=== PATIENT | female | born 1965 ===

== ENCOUNTER 2017-02-28 16:34 | Emergency (ER) | payer OTHER ==
[2017-02-28 16:43] VITALS: RESP 18
[2017-02-28] MEDS ORDERED: Lidocaine 2% Inj (20ml) ONE (16:55)
[2017-02-28] MEDS ORDERED: Amoxicillin-Clav 875-125 mg Tab PO STA (17:47)
--- NOTE | 2017-02-28 17:51 | C.PDOC ---
History Of Present Illness 51 y/o F p/w R hand 3rd digit laceration suffered just prior to arrival when caught in door. Patient denies numbness or inability to move fingers. Time Seen by Provider: 02/28/17 16:51 Chief Complaint (Nursing): Abnormal Skin Integrity Past Medical History Vital Signs: Last Vital Signs Temp 98.8 F 02/28/17 16:39 Pulse 81 02/28/17 16:39 Resp 18 02/28/17 16:39 BP 173/106 H 02/28/17 16:39 Pulse Ox 100 02/28/17 16:39 Family History: States: No Known Family Hx - Social History Hx Alcohol Use: No Hx Substance Use: No Review Of Systems Except As Marked, All Systems Reviewed And Found Negative. Constitutional: Negative for: Fever Respiratory: Negative for: Shortness of Breath Physical Exam - Physical Exam Additional Physical Exam Comments: Gen: NAD Extremities: Distal 3rd phalanx of R hand with laceration over dorsal surface extending to lateral finger. Palmar aspect of digit with intact skin. Active bleeding. Nail intact. Patient with IP movement intact. Sensation to distal phalanx intact. Cap refill < 2 seconds. ED Course And Treatment O2 Sat by Pulse Oximetry: 100 Laceration - Laceration Repair No standard instances Wound Length (In cm): 2.5 circumferential around digit Description Of Wound: Linear Wound Cleansed With: Betadine, Sterile Saline Anesthesia: Lidocaine 2% Wound Examination: Irrigated With Saline, No FB With Wound Exploration, No Tendon Injury With Wound Exploration Wound Debridement/Revision: Wound Margins Revised Wound Closure: Suture (6 6-0 ethilon for lateral margins, 1 5-0 chromic gut absorbable in nail bed after nail cut back, nail bed left intact) Suture Technique And Material Used: Interrupted Wound Complexity: Complex (dressed with bacitracin, gauze, and finger splint) Medical Decision Making Medical Decision Making: Tdap administered. Augmentin administered. F/u Hand. Have sutures removed in 10 days. Return to ED immediately for pus discharge, erythema, swelling, or fever. Disposition - Disposition Referrals: Shahab High MD [Staff Provider] - Disposition: HOME/ ROUTINE Disposition Time: 17:48 Condition: STABLE Prescriptions: Amoxicillin/Clavulanate [Augmentin 875 MG-125 MG] 1 tab PO BID #20 tab Instructions: Finger Laceration (ED) - Clinical Impression Clinical Impression: Laceration of finger nail bed
[2017-02-28] MEDS ORDERED: Bacitracin 500 Units/gm Oint Foilpak UD ONE (17:59)
[2017-02-28] MEDS ORDERED: Amoxicillin-Clav 875-125 mg Tab PO ONE (18:07)
[2017-02-28 18:33] VITALS: BP 156/98; PULSE 84; TEMP 97.3; O2SAT 99
== END 2017-02-28 18:21 | disposition home or self-care (01) ==
LOC: C.ER 16:34
DX: S61.212A Laceration without foreign body of right middle finger without damage to nail, initial encounter (principal); W23.0XXA Caught, crushed, jammed, or pinched between moving objects, initial encounter; Y93.89 Activity, other specified; Y92.89 Other specified places as the place of occurrence of the external cause; Z23 Encounter for immunization

== ENCOUNTER 2017-09-11 11:25 | Emergency (ER) | payer OTHER ==
[2017-09-11] MEDS ORDERED: Naproxen 550 mg Tab PO STA (12:14)
[2017-09-11] MEDS ORDERED: Naproxen 550 mg Tab PO ONE (12:20)
--- NOTE | 2017-09-11 13:20 | C.PDOC ---
History Of Present Illness 52 y/o female presents to the ER complaining of mid back pain which has been present for the past 4 days. Patient states she has had this pain previously, and it typiccally resolved with ibuprofen but did not this time. Patient denies fall/injuries, fever, cough, SOB, chest pain, palpitations, and abdominal pain. Time Seen by Provider: 09/11/17 11:42 Chief Complaint (Nursing): Back Pain History Per: Patient History/Exam Limitations: no limitations Onset/Duration Of Symptoms: Days Current Symptoms Are (Timing): Still Present Quality Of Discomfort: "Pain" Severity: Moderate Past Medical History Reviewed: Historical Data, Nursing Documentation, Vital Signs Vital Signs: Last Vital Signs Temp 97.9 F 09/11/17 13:29 Pulse 74 09/11/17 13:29 Resp 18 09/11/17 13:29 BP 161/90 H 09/11/17 13:29 Pulse Ox 98 09/11/17 20:32 - Medical History PMH: No Chronic Diseases Surgical History: No Surg Hx Family History: States: No Known Family Hx - Social History Hx Alcohol Use: No Hx Substance Use: No Review Of Systems Constitutional: Negative for: Fever, Chills Cardiovascular: Negative for: Chest Pain, Palpitations Respiratory: Negative for: Cough, Shortness of Breath Gastrointestinal: Negative for: Nausea, Vomiting, Abdominal Pain Musculoskeletal: Positive for: Back Pain Skin: Negative for: Rash Physical Exam - Physical Exam Appears: Well, Non-toxic, In Acute Distress (in mild pain) Skin: Normal Color, Warm, No Rash Head: Normacephalic Eye(s): bilateral: Normal Inspection Nose: Normal Oral Mucosa: Moist Neck: Supple Cardiovascular: Rhythm Regular Respiratory: Normal Breath Sounds, No Rales, No Rhonchi, No Wheezing Gastrointestinal/Abdominal: Normal Exam, Bowel Sounds, Soft, No Tenderness Back: No CVA Tenderness, Vertebral Tenderness (tenderness at approx T8 level), No Paraspinal Tenderness Neurological/Psych: Oriented x3 ED Course And Treatment O2 Sat by Pulse Oximetry: 98 (RA) Pulse Ox Interpretation: Normal - Radiology CXR: Interpreted by Me, Viewed By Me CXR Interpretation: Yes: No Acute Disease. No: Infiltrates Progress Note: Patient given Naproxen PO and Flexeril PO. CXR ordered and reviewed - negative for acute findings. Reevaluation Time: 13:20 Reassessment Condition: Improved (On reassessment, patient is resting comfortably, in no pain/distress. She states her pain has improved. Rxs for Naprosyn and Flexeril given, and patient instructed to follow up with PMD/ clinic in 1-2 days. She understands she should return to ED if symptoms worsen. ) Disposition Counseled Patient/Family Regarding: Studies Performed, Diagnosis, Need For Followup, Rx Given - Disposition Referrals: Emiliano Gordon MD [Staff Provider] - Disposition: HOME/ ROUTINE Disposition Time: 13:20 Condition: STABLE Additional Instructions: FOLLOW UP WITH YOUR DOCTOR/CLINIC IN 1-2 DAYS USE MEDICATIONS NEEDED RETURN TO ER IF SYMPTOMS WORSEN SEGUIMIENTO CON SCHROEDER MDICO / CLNICA EN 1-2 [place] USE MEDICAMENTOS SEGN SEA NECESARIO VOLVER A ER SI LOS SNTOMAS EMPEORAN Prescriptions: Cyclobenzaprine [Flexeril] 10 mg PO BID PRN #15 tab PRN Reason: Muscle Spasm Naproxen 375 mg PO BID PRN #20 tablet PRN Reason: pain Instructions: Upper Back Pain (DC) Forms: [employer] (Kyrgyz) Print Language: SOMALI - POA Present On Arrival: None - Clinical Impression Clinical Impression: Thoracic back pain - Scribe Statement The provider has reviewed the documentation as recorded by the Anaibe Bernice Mei Provider Attestation: All medical record entries made by the Scribe were at my direction and personally dictated by me. I have reviewed the chart and agree that the record accurately reflects my personal performance of the history, physical exam, medical decision making, and the department course for this patient. I have also personally directed, reviewed, and agree with the discharge instructions and disposition.
[2017-09-11 13:30] VITALS: BP 161/90; PULSE 74; RESP 18; TEMP 97.9
[2017-09-11 15:23] VITALS: O2SAT 98
== END 2017-09-11 13:30 | disposition home or self-care (01) ==
LOC: C.ER 11:25
DX: M54.6 Pain in thoracic spine (principal)